=== PATIENT | male | born 1990 | race African-American/Black ===

== ENCOUNTER 2017-08-03 13:26 | Day surgery (SDC) | payer OTHER ==
[2017-07-24 13:05] VITALS: BMI 25.0
[2017-08-03] MEDS ORDERED: MIDAZOLAM HCL 2 MG/2 ML SINGLE DOSE VIAL ONE (15:42)
[2017-08-03] MEDS ORDERED: PROPOFOL 20 ML ONE ×2 (15:42→16:08)
[2017-08-03] MEDS ORDERED: LIDOCAINE HCL/PF 2% SDV 5ML VIAL ONE (15:43)
[2017-08-03] MEDS ORDERED: EPINEPHrine 1:1,000 1 MG/1 ML - 30ML VIAL (INJECTION) ONE (15:45)
--- NOTE | 2017-08-03 15:50 | OP ---
Operative Note - Note: Operative Date: 08/03/17 Pre-Operative Diagnosis: right knee lateral meniscal tear Operation: right knee arthroscopy with partial lateral menisectomy AND repair, exam under anesthesia Post-Operative Diagnosis: Same as Pre-op Surgeon: Crispin Irby Anesthesiologist/CARE MANAGEMENT COORDINATOR: Manuel Lowe Anesthesia: General Operative Report Dictated: Yes
[2017-08-03] MEDS ORDERED: DEXAMETHASONE SOD PHOSPHATE 4 MG/1 ML VIAL ONE (16:03)
[2017-08-03] MEDS ORDERED: ONDANSETRON 4 MG/2 ML VIAL ONE ×2 (16:03→17:12)
[2017-08-03] MEDS ORDERED: ceFAZolin SODIUM 1 GM VIAL ONE (16:03)
[2017-08-03] MEDS ORDERED: oxyCODONE HCL 5 MG TABLET PO PRN ×2 (17:01)
[2017-08-03] MEDS ORDERED: ONDANSETRON 4 MG/2 ML VIAL IVPUSH PRN (17:01)
[2017-08-03] MEDS ORDERED: LACTATED RINGERS SOLUTION 1,000 ML IV SCH (17:15)
[2017-08-03 18:07] VITALS: TEMP 97.7
[2017-08-03] MEDS ORDERED: oxyCODONE HCL 5 MG TABLET ONE (18:08)
[2017-08-03 18:31] VITALS: BP 133/81; PULSE 70
--- NOTE | 2017-08-03 19:23 | OP ---
DATE OF OPERATION: 08/03/2017 PREOPERATIVE DIAGNOSIS: Right lateral meniscal tear. POSTOPERATIVE DIAGNOSIS: Right lateral meniscal tear. PROCEDURE: Right knee arthroscopy, right lateral meniscal debridement and repair. SURGEON: Crispin Irby MD ANESTHESIA: General. POSTOPERATIVE CONDITION: Stable. COMPLICATIONS: None. INDICATIONS: This is a pleasant 27-year-old gentleman who is suffering from lateral knee pain. MRI demonstrated lateral meniscal tear. Treatment options were reviewed, including nonoperative versus operative management. Operative risks reviewed in detail, including bleeding, infection, neurovascular injury, need for further surgery, postoperative pain and stiffness, progression of osteoarthritis. We discussed medical risks such as heart attack, stroke, DVT, PE, and . The patient voiced understanding and elected to proceed. We discussed that the patient had some preoperative ligamentous laxity on the examination. This will be examined at the time of the procedure and if anything was determined to be grossly unstable, could require later ligamentous reconstruction. I addressed all the patient's questions and concerns. He voiced understanding and elected to proceed. PROCEDURE: The patient was brought to the operating room, where general anesthesia was administered. The right lower extremity was then examined, demonstrating full range of motion. There was 1+ opening of the LCL with a firm endpoint. No increase in laxity compared to the contralateral. Stable ACL, PCL, MCL. At this point, the patient was prepped and draped in the usual sterile fashion. A preoperative dose of antibiotics given and the usual timeout procedure was performed. The arthroscope was now inserted through a portal established using an 11 blade in the lateral aspect of the knee. It was passed into the patellofemoral joint. The patellofemoral joint demonstrated no abnormal findings. Passing the arthroscope into the medial compartment, the medial compartment was examined, demonstrating no articular lesions and no meniscal lesions. The arthroscope was passed across the notch, demonstrating intact ACL and PCL. It should be noted that while in the medial compartment, medial portals established under spinal needle localization. This was used to probe the meniscus and confirm a lack of tears. The arthroscope was passed in the lateral compartment. Here, at the junction of the body and anterior horn of the lateral meniscus, a tear was identified, radial in nature. The tear appeared to be high grade, partial thickness. Initially, the tear was debrided. However, it was felt that there was still some instability upon probing, and rather than perform a full-thickness meniscectomy, there was a parrot-beak component to the tear, which was felt to be amenable to repair. An accessory anteromedial portal was now established under spinal needle localization. Utilizing a Fast-Fix 360 device, a horizontal mattress suture was passed across the oblique tear. This repaired the tear down and now the tear was found to be stable upon probing. At this point, the scope was passed back into the notch. In order to provide a more favorable healing environment, the lateral wall of the notch was debrided of any soft tissue attachments inferior to the ACL. Utilizing a microfracture awl, 3 trephinations were made into the notch and marrow was seen to extravasate from these. At this point, the excess fluid was withdrawn from the knee. The portals were sutured using 3- 0 nylon. Sterile dressings were placed. The patient was extubated and transferred to the recovery room in stable condition. Emilia MARRERO/[id number] JC
== END 2017-08-03 19:00 | disposition home or self-care (01) ==
LOC: FASU 13:26
PROVIDERS: ATTEND Orthopaedic Surgery Sports Medicine
PROC: 0SBC4ZZ Excision of Right Knee Joint, Percutaneous Endoscopic Approach (ICD-10-PCS; 2017-08-03)
PROC: 0SQC4ZZ Repair Right Knee Joint, Percutaneous Endoscopic Approach (ICD-10-PCS; principal; 2017-08-03 16:12)
DX: S83.281A Other tear of lateral meniscus, current injury, right knee, initial encounter (principal); X58.XXXA Exposure to other specified factors, initial encounter; Y93.89 Activity, other specified; Y92.89 Other specified places as the place of occurrence of the external cause
CPT/HCPCS: 94760